=== PATIENT | male | born 1950 | race Caucasian/White ===

== ENCOUNTER → 2016-08-12 | Outpatient (CLI) | payer OTHER ==
[~2016-08-12] MED LIST: AMLODIPINE BESY10 MG PO; COZAAR 50 MG TA50 M2 PO; FLOMAX0.4 MG PO; GABAPENTIN 100100 MG PO; HYDRALAZINE 2525 MG PO; HYDROCHLOROTHIA25 M2 PO; LIPITOR10 MG PO; LOPRESSOR25 PO; ONDANSETRON HCL4 M2 PO; POTASSIUM20 PO; PROZAC20 MG PO
--- NOTE | ~2016-08-12 | EKG ---
[address] [address] ELECTROCARDIOGRAM REPORT Name: TOSIN ALATORRE Room #: REG CLKiana Bowden#: [id number] Admission: 08/12/16 Attend Phys: Eddi Gonzalez MD Discharge: Date of : 54 Report #: [id number] THIS REPORT FOR: //name// [facility] Test Date: 2016-08-12 Test Time: 15:34:33 Pat Name: TOSIN ALATORRE Department: Room: Gender: Laboratory Analyst: Hui ROMANO : 1950 Requested By: Eddi Gonzalez Order Number: [id number] MD: Rogelio Brown Measurements Intervals [place] Rate: 46 P: 39 [place]: 154 QRS: -13 QRSD: 86 T: 43 QT: 445 QTc: 390 Interpretive Statements Sinus bradycardia Probable inferior infarct, old No previous ECG available for comparison Electronically Signed On 08-12-2016 15:55:47 [employer] by Rogelio Brwon [email or web address] <ELECTRONICALLY SIGNED> By: Rogelio Brown MD 08/12/16 1555 1534 1534 Rogelio Brown MD /MYRON
== END | disposition home or self-care (01) ==
LOC: LITH 10:56
DX: N20.0 Calculus of kidney (principal)